=== PATIENT | female | born 1950 | race Caucasian/White ===

== ENCOUNTER 2020-04-09 01:43 | Inpatient (IN) ==
[2020-04-09] MEDS ORDERED: NS 0.9% 1000 ml BAG 1,000 ML IV ONE (02:13)
[2020-04-09] MEDS ORDERED: oxyCODONE/Acetamin 5/325 mg TAB PO ONE (03:36)
[2020-04-09] MEDS ORDERED: Diazepam INJ CARPUJECT 5 MG/ML IV ONE (04:23)
[2020-04-09 08:00] LABS: ABS Eosinophils 0.2 10^3/ul (0-0.6); ABS Lymphocytes 1.4 10^3/ul (1.0-4.8); ABS Monocytes 0.9 10^3/ul (0-0.8); Eosinophil % 2.2 %; Hematocrit 40 % (35-47); Hemoglobin 13.3 g/dL (12.0-16.0); Lymphocyte % 18.5 %; Mean Corpuscular HGB Conc 33 g/dL (31-36); Mean Corpuscular Hemoglobin 31 pg (27-31); Mean Corpuscular Volume 94 fL (80-97); Mean Platelet Volume 9.9 fL (7.4-10.4); Platelet Count 155 10^3/uL (150-450); Red Blood Count 4.28 10^6 /uL (3.70-4.87); Red Cell Distribution Width 14 % (10-15); White Blood Count 7.7 10^3/uL (3.5-10.8)
[2020-04-09 08:04] LABS: Albumin 3.6 g/dL (3.2-5.2); Albumin/Globulin Ratio 1.3 (1-3); BUN/Creatinine Ratio 16.5 (8-20); C Reactive Protein 142.64 mg/L (<8.01); Calcium 8.6 mg/dL (8.6-10.3); EGFR African American 87.8 (>60); EGFR Non-African American 72.6 (>60); Globulin 2.7 g/dL (2-4); Potassium 3.7 mmol/L (3.5-5.0); Total Bilirubin 0.7 mg/dL (0.2-1.0); Total Protein 6.3 g/dL (6.4-8.9)
[2020-04-09] MEDS ORDERED: Al Hydrox/Mg Hydrox/Simet LIQ 30 ML UDC PO PRN (08:11)
[2020-04-09] MEDS ORDERED: Naproxen 500 MG # 4 TAB PREPK 500 MG PAK PO PRN (08:29)
[2020-04-09] MEDS: HYDROmorphone 1 MG/1 ML SYRINGE IV PRN ×4 (09:09→21:59)
[2020-04-09 09:54] LABS: TSH (Thyroid Stimulating Horm) 3.37 mcIU/mL (0.34-5.60)
[2020-04-09] MEDS: Enoxaparin 40 MG/0.4 ML SYR(*) SUBCUT SCH (10:41)
[2020-04-09] MEDS ORDERED: Gadoteridol (CONTRAST) 279.3 MG/ML 10 ML IV ONE (11:53)
[2020-04-09] MEDS ORDERED: Glycerin ADULT 2.4 gm SUPP PR ONE (15:00)
[2020-04-09] MEDS: Magnesium Hydroxide LIQ 30 ML UDC PO PRN ×2 (15:11→20:25)
[2020-04-09] MEDS: Senna TAB 8.6 mg TAB PO PRN (20:25)
[2020-04-10] MEDS: HYDROmorphone 1 MG/1 ML SYRINGE IV PRN (07:13)
[2020-04-10] MEDS: Multivitamins/Minerals TAB PO SCH (08:44)
[2020-04-10] MEDS: Enoxaparin 40 MG/0.4 ML SYR(*) SUBCUT SCH (08:51)
[2020-04-10 20:50] LABS: Urine Appearance Cloudy; Urine Bilirubin 1+ (Negative); Urine Blood Negative (Negative); Urine Color Yellow; Urine Glucose Negative (Negative); Urine Ketones Negative (Negative); Urine Nitrite Negative (Negative); Urine Protein Negative (Negative); Urine Specific Gravity 1.031 (1.010-1.030); Urine Urobilinogen Negative (Negative)
[2020-04-10 20:59] LABS: Urine Bacteria Absent (Absent); Urine Red Blood Cell 1+(3-5/hpf) (Absent); Urine Squamous Epithelial Cell Present (Absent); Urine White Blood Cell 2+(11-20/hpf) (Absent)
[2020-04-10] MEDS: Senna TAB 8.6 mg TAB PO PRN (20:59)
[2020-04-11] MEDS: Multivitamins/Minerals TAB PO SCH (10:08)
[2020-04-11] MEDS: Enoxaparin 40 MG/0.4 ML SYR(*) SUBCUT SCH (10:09)
[2020-04-11 11:31] VITALS: BP 158/83
== END 2020-04-11 15:25 | disposition home health service (06) | DRG 556 ==
LOC: ED 01:43 → SSU 08:11
PROVIDERS: ADMIT Internal Medicine; ATTEND Internal Medicine